=== PATIENT | male | born 2000 | race Caucasian/White ===

== ENCOUNTER 2024-06-12 14:45 | Emergency (ER) | payer BC ==
[~2024-06-12] VITALS: Ht 175.3 cm; Wt 70.3 kg
[2024-06-12] MEDS ORDERED: LIDOCAINE 2% 50 ML MDV IJ ONE (15:00)
[2024-06-12 16:11] VITALS: BP 120/60; TEMP 98.1; O2SAT 98
== END 2024-06-12 16:18 | disposition home or self-care (01) ==
LOC: ER 16:01
DX: S01.81XA Laceration without foreign body of other part of head, initial encounter (principal); J45.909 Unspecified asthma, uncomplicated; Z88.0 Allergy status to penicillin; Z88.2 Allergy status to sulfonamides; V09.9XXA Pedestrian injured in unspecified transport accident, initial encounter; Y93.89 Activity, other specified; Y92.89 Other specified places as the place of occurrence of the external cause; Y99.8 Other external cause status
CPT/HCPCS: 99283; 12013; J3490